=== PATIENT | female | born 1960 | race Two or more races ===

== ENCOUNTER 2018-12-08 13:15 | Outpatient (CLI) | payer MEDICAID ==
--- NOTE | 2018-12-08 19:30 | Consultation ---
DATE OF CONSULTATION: 12/08/2018 CONSULTING PHYSICIAN: Gage Cooley M.D. CHIEF COMPLAINT: Abdominal pain. HISTORY OF PRESENT ILLNESS: This is a 58-year-old female, apparently had an endoscopy and colonoscopy. She has multiple gastric polyps. She was referred to us for EUS for evaluation of gastric lesions. PAST MEDICAL HISTORY: 1. Hypertension. 2. History of breast cancer. 3. Prediabetics. PAST SURGICAL HISTORY: Appendectomy and bilateral mastectomy. MEDICATIONS: Please see medication reconciliation list. FAMILY HISTORY: No family history of GI malignancies. SOCIAL HISTORY: The patient denies any tobacco, alcohol, or drug abuse. ALLERGIES: No known drug allergies. REVIEW OF SYSTEMS: A 10-point review of systems was performed and pertinent positives in HPI. PHYSICAL EXAMINATION: VITAL SIGNS: Temperature 97.7, pulse 79, respiration 18, blood pressure is 130/77. HEENT: Normocephalic and atraumatic. Sclerae anicteric. NECK: Supple. No evidence of lymphadenopathy. CARDIOVASCULAR: Regular rate and rhythm. Plus S1 and S2. No obvious murmur. LUNGS: Clear to auscultation bilaterally. ABDOMEN: Positive bowel sounds. Soft and nontender. No rebound. No guarding. No peritoneal sign. EXTREMITIES: No cyanosis, no clubbing, no edema. ASSESSMENT AND PLAN: This is an 88-year-old female with multiple gastric polyps and questionable gastric submucosal lesion, who was referred to us for endoscopic ultrasound. Plan to obtain authorization for that and we will schedule when authorization is obtained. Gage Cooley M.D. DR: DEVYN JOB#: [id number] CC:
== END 2018-12-08 15:15 | disposition home or self-care (01) ==
LOC: PAN 13:15
DX: R10.9 Unspecified abdominal pain (principal); K31.7 Polyp of stomach and duodenum; Z90.89 Acquired absence of other organs; Z90.13 Acquired absence of bilateral breasts and nipples; I10 Essential (primary) hypertension; R73.03 Prediabetes